=== PATIENT | female | born 1960 | race Caucasian/White ===

== ENCOUNTER 2019-07-15 09:12 | Outpatient (CLI) | payer SELFPAY ==
--- NOTE | 2019-07-15 09:19 | XRR_ITS ---
PROCEDURE INFORMATION: Exam: XR Lumbosacral Spine, 2 or 3 Views Exam date and time: 07/15/2019 9:53 AM Age: 59 years old Clinical indication: Low back pain TECHNIQUE: Imaging protocol: XR of the lumbosacral spine, 2 or 3 views. COMPARISON: CR Lumbar Spine 2-3 views* [id number] 04/15/2019 10:15 AM FINDINGS: Vertebrae: Severe diffuse degenerative disc disease reflected as severe decrease in disc space height and anterior endplate osteophytosis. No spondylolisthesis No pars defect. No fracture. Soft tissues: Normal. Other findings: No motion with flexion or extension. XR/XR lumbar spine f/e only [id number] IMPRESSION: Severe diffuse degenerative disc disease.
== END 2019-07-15 09:13 | disposition home or self-care (01) ==
PROVIDERS: PCP Nurse Practitioner Family; Visit Provider Specialist
DX: M47.896 Other spondylosis, lumbar region (principal); M54.5 Low back pain
CPT/HCPCS: 72120

== ENCOUNTER 2019-07-26 16:30 | Outpatient (CLI) | payer SELFPAY ==
--- NOTE | 2019-07-26 16:45 | MR_ITS ---
WS: [id number] MRI LUMBAR SPINE NONCONTRAST TECHNIQUE: Sagittal T1, T2 and STIR imaging. Axial T1 and T2 imaging. CLINICAL INFORMATION: Low back pain COMPARISON: None. FINDINGS: Mild lumbar curve. No acute compression. Disc bulging throughout the lumbar spine L1-L4. Slight retro listhesis L1 on L2 and L2 on L3. L1-L2: Mild annular bulging with narrowing of the subarticular recess bilaterally. Mild left and no s ignificant right foraminal narrowing. Mild facet arthropathy. L2-L3: Slight retrolisthesis. Annular bulging with narrowing of the right greater than left subarticu lar recess. Mild right and no significant left foraminal narrowing. Moderate facet arthropathy. L3-L4: Mild disc bulging with mild central canal stenosis. Narrowing of the right greater than left s ubarticular recess. Mild right greater than left foraminal narrowing. Moderate facet arthropathy. L4-L5: Mild disc bulging with mild central canal stenosis. Moderate facet arthropathy. Narrowing of t he subarticular recess bilaterally. Mild right foraminal narrowing. L5-S1: Mild annular bulging. Slight effacement of ventral thecal sac. Moderate facet arthropathy. Tar pilar cysts in the sacrum. Visualized pelvic bony structures: Normal. Paravertebral soft tissues: Normal. MR/MR lumbar spine wo con* [id number] IMPRESSION: 1. Mild lumbar curve. No acute compression. Slight retrolisthesis L1 on L2 and L2 on L3. 2. Mild disc bulging L3-L4 and L4-L5 with mild central canal stenosis and narr owing of the subarticular recess right greater than left. 3. Mild right L3-L4 and L4-L5 foraminal narrowing. 4. Annular bulging L5-S1 with slight effacement of ventral thecal sac. 5. Moderate facet arthropathy L3-L5. 6. Mild disc bulging L1-L2 and L2-L3 with slight retrolisthesis and narrowing of the right L2-L3 subarticular recess.
== END 2019-07-26 16:31 | disposition home or self-care (01) ==
PROVIDERS: PCP Nurse Practitioner Family; Visit Provider Licensed Practical Nurse
DX: M54.5 Low back pain (principal); M51.86 Other intervertebral disc disorders, lumbar region; M47.816 Spondylosis without myelopathy or radiculopathy, lumbar region
CPT/HCPCS: 72148

== ENCOUNTER → 2019-10-04 12:59 | Outpatient (BNVA) | payer SELFPAY | PROVIDERS: PCP Nurse Practitioner Family; Referring Provider Specialist; Visit Provider Anesthesiology Pain Medicine | DX: M47.816 Spondylosis without myelopathy or radiculopathy, lumbar region (principal); M51.36 Other intervertebral disc degeneration, lumbar region; M54.9 Dorsalgia, unspecified; Z79.891 Long term (current) use of opiate analgesic | CPT/HCPCS: 99204 ==

== ENCOUNTER → 2019-11-22 14:00 | Outpatient (BNVA) | payer SELFPAY | PROVIDERS: PCP Nurse Practitioner Family; Visit Provider Anesthesiology Pain Medicine | DX: M47.816 Spondylosis without myelopathy or radiculopathy, lumbar region (principal); M54.9 Dorsalgia, unspecified | CPT/HCPCS: 64493; 64494; 64495; J2001; J3490 ==

== ENCOUNTER → 2019-12-09 09:05 | Outpatient (BNVA) | payer SELFPAY | PROVIDERS: PCP Nurse Practitioner Family; Visit Provider Anesthesiology Pain Medicine | DX: M51.16 Intervertebral disc disorders with radiculopathy, lumbar region (principal); M47.816 Spondylosis without myelopathy or radiculopathy, lumbar region; M43.16 Spondylolisthesis, lumbar region; M51.36 Other intervertebral disc degeneration, lumbar region; M51.17 Intervertebral disc disorders with radiculopathy, lumbosacral region; M54.9 Dorsalgia, unspecified | CPT/HCPCS: 99213 ==

== ENCOUNTER → 2019-12-20 13:04 | Outpatient (BNVA) | payer SELFPAY | PROVIDERS: PCP Nurse Practitioner Family; Visit Provider Anesthesiology Pain Medicine | DX: M47.816 Spondylosis without myelopathy or radiculopathy, lumbar region (principal); M54.9 Dorsalgia, unspecified | CPT/HCPCS: 64635; 64636; 77003; J1030; J2001 ==

== ENCOUNTER → 2020-01-13 09:12 | Outpatient (BNVA) | payer SELFPAY | PROVIDERS: PCP Nurse Practitioner Family; Visit Provider Anesthesiology Pain Medicine | DX: M51.16 Intervertebral disc disorders with radiculopathy, lumbar region (principal); M47.816 Spondylosis without myelopathy or radiculopathy, lumbar region; M51.36 Other intervertebral disc degeneration, lumbar region; M43.16 Spondylolisthesis, lumbar region; M51.17 Intervertebral disc disorders with radiculopathy, lumbosacral region; M54.9 Dorsalgia, unspecified | CPT/HCPCS: 99213 ==

== ENCOUNTER → 2020-03-07 09:25 | Outpatient (BNVA) | payer SELFPAY | PROVIDERS: PCP Nurse Practitioner Family; Visit Provider Anesthesiology Pain Medicine | DX: M47.816 Spondylosis without myelopathy or radiculopathy, lumbar region (principal); M51.36 Other intervertebral disc degeneration, lumbar region; M43.16 Spondylolisthesis, lumbar region; M51.16 Intervertebral disc disorders with radiculopathy, lumbar region; M51.17 Intervertebral disc disorders with radiculopathy, lumbosacral region; M54.9 Dorsalgia, unspecified | CPT/HCPCS: 99213 ==

== ENCOUNTER 2020-10-30 15:30 | Outpatient (CLI) | payer SELFPAY ==
[2020-10-30 16:13] LABS: Basophils # 0.1 10^3/uL (0.0-0.1); Basophils % 0.6 %; Eosinophils # 0.2 10^3/uL (0.0-0.8); Eosinophils % 1.6 %; Hematocrit 43.3 % (37.0-47.0); Hemoglobin 13.7 g/dL (11.5-15.3); Lymphocytes # 3.5 10^3/uL (0.8-4.8); Lymphocytes % 37.9 %; Mean Corpuscular HGB Conc 31.6 g/dL (30.0-36.0); Mean Corpuscular Hemoglobin 27.7 pg (28.0-34.0); Mean Corpuscular Volume 87.7 fL (81-99); Mean Platelet Volume 9.7 fL (7.4-10.4); Monocytes # 0.7 10^3/uL (0.2-0.9); Monocytes % 7.3 %; Neutrophils # 4.85 10^3/uL (1.8-7.7); Neutrophils % 52.4 %; Nucleated Red Blood Cells % 0 %; Platelet Count 289 10^3/cmm (130-400); Red Blood Count 4.94 10^6/uL (4.1-5.3); Red Cell Distribution Width 12.7 % (12.1-15.1); White Blood Count 9.3 10^3/uL (4.0-10.0)
[2020-10-30 16:43] LABS: 25 Hydroxy Vitamin D 30 ng/mL (30-100)
[2020-10-30 17:06] LABS: Testosterone Total 2.5 ng/dL (2.9-40.8)
[2020-10-30 19:57] LABS: Estmated Average Glucose 108; Hemoglobin A1C 5.4 % (4.0-6.0)
[2020-11-04 20:12] LABS: Testosterone, Free 1.6 pg/mL (0.2-5.0)
== END 2020-10-30 15:31 | disposition home or self-care (01) ==
PROVIDERS: PCP Nurse Practitioner Family; Visit Provider Emergency Medicine Sports Medicine
DX: Z01.812 Encounter for preprocedural laboratory examination (principal); R53.83 Other fatigue; M89.9 Disorder of bone, unspecified; M94.9 Disorder of cartilage, unspecified; E55.9 Vitamin D deficiency, unspecified
CPT/HCPCS: 82306; 83036; 84270; 84402; 84403; 85025

== ENCOUNTER 2022-12-11 16:56 | Emergency (ER) | payer OTHER, SELFPAY ==
[2022-12-11] VITALS (7 sets, daily range): BP systolic 123–177; BP diastolic 73–108; PULSE 64–71; RESP 18–20; TEMP 36.8; O2SAT 96–98
--- NOTE | 2022-12-11 17:09 | ECG_ITS ---
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 Measurements Intervals [place] Rate: 68 P: 46 WI: 152 QRS: -2 QRSD: 93 T: 36 QT: 409 QTc: 436 Interpretive Statements SINUS RHYTHM POSSIBLE LEFT ATRIAL ENLARGEMENT [-0.1mV P-WAVE IN V1/V2] MINIMAL ST DEPRESSION [0.025+ mV ST DEPRESSION] No previous ECG available for comparison Electronically Signed On 12-11-2022 23:18:44 CDT by Moe Huang M.D. [id number] f
--- NOTE | 2022-12-11 17:45 | XRR_ITS ---
PROCEDURE INFORMATION: Exam: XR Chest Exam date and time: 12/11/2022 4:57 PM Age: 62 years old Clinical indication: Pain; Chest pressure; Additional info: Cp TECHNIQUE: Imaging protocol: Radiologic exam of the chest. Views: 1 view. COMPARISON: MR thoracic spin wo con* [id number] 05/04/2019 4:58 PM FINDINGS: Lungs: Unremarkable. No consolidation. Pleural spaces: Unremarkable. No pleural effusion. No pneumothorax. Heart/Mediastinum: Unremarkable. No cardiomegaly. Bones/joints: Unremarkable. XR/XR chest 1V portable [id number] IMPRESSION: No acute findings.
--- NOTE | 2022-12-11 19:26 | ED_ITS ---
HPI - Chest Pain General: Chief Complaint: Chest Pain Stated Complaint: irregular hr, face and arm numbness/crawling feel Time Seen by Provider: 12/11/22 19:17 Source: patient Mode of arrival: ambulatory Limitations: no limitations History of Present Illness: 62-year-old female states that she is at work today at 330 she states that she had felt like there was ants crawling on the right side of her face states she feels twitching on her face now states she then started having some right-sided chest pain and also left arm pain that she states felt like radiated to her back states is a sharp pain states pain is currently 4 out of 10. She denies any slurred speech denies any weakness denies any change in her vision she denies headache. She has had some dyspnea with exertion she states been going on for weeks. Associated symptoms: Deny abdominal pain, dyspnea, fever(s), nausea or vomiting Review of Systems Const: Denies: fever(s), chills, body aches or change in appetite Eyes: Denies: blurry vision or eye discomfort ENMT: Denies: throat pain or dental pain Card: Reports: chest pain Resp: Denies: dyspnea GI: Denies: abdominal pain, nausea, vomiting or diarrhea : Denies: dysuria Musc: Denies: neck pain or back pain Skin/Breast: Denies: rash Neuro: Reports: sensory changes; Denies: headache(s) PFS ED PFSH: Medical History (Updated 12/11/22 @ 22:06 by Riana Stone MD) Displacement of lumbar disc with radiculopathy Lumbar spondylosis Scoliosis deformity of spine Spondylolisthesis, lumbar region Surgical History History of appendectomy (~1983) History of tubal ligation (~1983) Family History Mother Lung cancer Sister Ovarian cancer Social History Smoking and tobacco status: never smoked Second hand smoke exposure: No Alcohol intake: never Substance/Drug Use: never Household members: spouse Housing: House Marital status: service: No Current occupational status: employed 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 Exam Const: COMMON NORMALS: no acute distress, patient oriented x3 and healthy appearing HENMT: COMMON NORMALS: normocephalic and atraumatic HEAD & SCALP: normoceph alic and atraumatic Eye: COMMON NORMALS: Equal, round and reactive pupils present and EOMs intact bilaterally PUPIL: Yes Equal, round and reactive pupils present Neck/C-Spine: COMMON NORMALS: full ROM and supple Chest: COMMONS NORMALS: normal inspection of the chest and normal palpation of entire chest wall Resp: COMMON NORMALS: normal respiratory effort, No retractions, No use of accessory muscles and clear to auscultation bilaterally AUSCULTATION: clear to auscultation bilaterally Cardio: COMMON NORMALS: regular rate, regular rhythm and No murmurs present (Cardio) RATE: regular rate RHYTHM: regular rhythm GI: COMMON NORMALS: Normal to inspection, nondistended, normoactive bowel sounds present, Soft to palpation, non-tender and no masses PALPATION: Yes Soft to palpation Extremity: COMMON NORMALS: normal to inspection and full ROM Neuro: COMMON NORMALS: patient oriented x3, moves all extremities and no focal motor deficits Psych: COMMON NORMALS: mental status grossly normal, Normal thought process present and cooperative THOUGHT PROCESS: Normal thought process present Skin: COMMON NORMALS: no rashes or lesions noted and no wounds GENERAL SKIN EXAM: no rashes or lesions noted Course Vital Signs: Vital signs: Vital Signs Temperature 98.2 F 12/11/22 16:58 Pulse Rate 71 12/11/22 21:30 Respiratory Rate 18 12/11/22 21:30 Blood Pressure 129/80 12/11/22 21:30 Pulse Oximetry 96 12/11/22 21:30 Oxygen Delivery Me thod Room Air 12/11/22 20:09 MDM - Chest Pain Medical Decision Making Patient presents for chest pain is atypical in nature her initial repeat troponins here are normal she is having some paresthesias she was anxious that her symptoms are improved with Ativan she has no signs of a stroke here her D- dimer was elevated CT angio of her chest showed no dissection or pulmonary embolism she is to follow-up with her PCP and return if worsening. Medical Records I reviewed the patient's medical records. Lab Data I reviewed the patient's lab results. 12/11/22 19:26 12/11/22 19:26 Radiology Impressions Chest X-Ray 12/11/22 17:45 IMPRESSION: No acute findings. Chest CTA 12/11/22 20:07 IMPRESSION: 1. No evidence of pulmonary embolism. No acute finding. 2. Right thyroid nodule. Further evaluation with non urgent thyroid ultrasound suggested. COMMENTS: Consistent with the [place] [employer]'s Incidental Findings Committee white paper (J Am Becki Radiol 2015): In patients aged 35 years and older with an incidental thyroid nodule equal to or greater than 1.[address], MRI or extrathyroidal US, further evaluation with dedicated thyroid US is recommended for patients with normal life expectancy and without comorbidities. For smaller nodules without suspicious features, no further evaluation or follow up is recommended. Laboratory Results WBC 11.5 10^3/uL (4.0-10.0) H 12/11/22 19: RBC 5.60 10^6/uL (4.1-5.3) H 12/11/22 19: Hgb 15.1 g/dL (11.5-15.3) 12/11/22 19: Hct 48.3 % (37.0-47.0) H 12/11/22 19: MCV 86.3 fl (81-99) 12/11/22 19: MCH 27.0 pg (28.0-34.0) L 12/11/22 19: MCHC 31.3 g/dL (30.0-36.0) 12/11/22 19: RDW 13.1 % (12.1-15.1) 12/11/22 19: Plt Count 293 10^3/cmm (130-400) 12/11/22 19: MPV 10.0 fL (7.4-10.4) 12/11/22 19: Neut % (Auto) 55.2 % 12/11/22 19: Lymph % (Auto) 36.4 % 12/11/22 19: [place] % (Auto) 5.4 % 12/11/22 19: Eos % (Auto) 2.2 % 12/11/22 19: Baso % (Auto) 0.5 % 12/11/22 19:26 Neut # (Auto) 6.35 10^3/uL (1.8-7.7) 12/11/22 19:26 Lymph # (Auto) 4.2 10^3/uL (0.8-4.8) 12/11/22 19:26 [place] # (Auto) 0.6 10^3/uL (0.2-0.9) 12/11/22 19:26 Eos # (Auto) 0.3 10^3/uL (0.0-0.8) 12/11/22 19:26 Baso # (Auto) 0.1 10^3/uL (0.0-0.1) 12/11/22 19:26 Nucleated RBC % (auto) 0 % 12/11/22 19:26 Nucleated RBCs # 0.0 /100WBC 12/11/22 19:26 D-Dimer 1.07 ug/mIFEU (0-0.59) H 12/11/22 19:46 Sodium 141 mmol/L (136-145) 12/11/22 19:26 Potassium 4.2 mmol/L (3.5-5.1) 12/11/22 19:26 Chloride 106 mmol/L (98-107) 12/11/22 19:26 Carbon Dioxide 21 mmol/L (22-29) L 12/11/22 19:26 Anion Gap 18.2 (5-19) 12/11/22 19:26 BUN 15 mg/dL (8-23) 12/11/22 19:26 Creatinine 0.7 mg/dL (0.5-0.9) 12/11/22 19:26 GFR Calculation 84.8 mL/min (90-130) L 12/11/22 19:26 Glucose 94 mg/dL (65-115) 12/11/22 19:26 Calculated Osmolality 293 mOsm/kg (285-295) 12/11/22 19:26 Calcium 9.2 mg/dL (8.5-10.5) 12/11/22 19:26 Total Bilirubin 0.2 mg/dL (0.15-1.2) 12/11/22 19:26 AST 27 U/L (0-32) 12/11/22 19:26 ALT 18 U/L (0-33) 12/11/22 19:26 Alkaline Phosphatase 121 U/L (35-105) H 12/11/22 19:26 Troponin T Baseline 6 ng/L (0-10) 12/11/22 19:26 Troponin T 120 Minute 6.00 ng/L (0-10) 12/11/22 21:33 Delta Troponin T 0 ABS# (0-10) 12/11/22 21:33 Total Protein 7.6 g/dL (6.6-8.7) 12/11/22 19:26 Albumin 4.8 g/dL (3.5-5.2) 12/11/22 19:26 Globulin 2.8 g/dL (1.3-4.6) 12/11/22 19:26 EKG Data EKG 1: I personally reviewed and interpreted this EKG as follows: EKG interpretation date: 12/11/22 EKG interpretation time: 17:09 Interpretation: nsr hr [address] or t wave abnormalities qrs 93 qtc 426 EKG 2: I personally reviewed and interpreted this EKG as follows: EKG interpretation date: 12/11/22 EKG interpretation time: 20:02 Interpretation: nsr hr [address] or t wave abnormalities qrs 97 qtc 422 Discharge Plan Discharge Patient Disposition: Home Clinical Impression: Chest pain, Paresthesia Condition: Stable Prescriptions: No Action ibuprofen 200 mg capsule 600 mg PO Q6H PRN esomeprazole magnesium [Nexium] 40 mg capsule,delayed release(DR/EC) 40 mg PO DAILY azithromycin [Zithromax Z-Oscar] 250 mg tablet See Rx Instructions PO .COMPLEX Qty: 6 0RF Rx Instructions: For 250 mg dose pack: take 500 mg today (day 1), then 250 mg for 4 days (days 2-5) PO Discharge Orders: Discharge ED (Routine); Ordered 12/11/22 Ordered By: Riana Stone Discharge Diet: Advance as tolerated Discharge Activity: Resume usual activity Patient Instructions: Chest Pain (ED), Paresthesia (ED) Coding Level of Care Code 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
[2022-12-11 19:55] LABS: Basophils # 0.1 10^3/uL (0.0-0.1); Basophils % 0.5 %; Eosinophils # 0.3 10^3/uL (0.0-0.8); Eosinophils % 2.2 %; Hematocrit 48.3 % (37.0-47.0); Hemoglobin 15.1 g/dL (11.5-15.3); Lymphocytes # 4.2 10^3/uL (0.8-4.8); Lymphocytes % 36.4 %; Mean Corpuscular HGB Conc 31.3 g/dL (30.0-36.0); Mean Corpuscular Volume 86.3 fl (81-99); Monocytes # 0.6 10^3/uL (0.2-0.9); Monocytes % 5.4 %; Neutrophils # 6.35 10^3/uL (1.8-7.7); Neutrophils % 55.2 %; Nucleated Red Blood Cells % 0 %; Platelet Count 293 10^3/cmm (130-400); Red Cell Distribution Width 13.1 % (12.1-15.1); White Blood Count 11.5 10^3/uL (4.0-10.0)
[2022-12-11] MEDS: LORazepam 2 mg/mL INJ 1 mL 1 MG IVP (19:56)
--- NOTE | 2022-12-11 20:02 | ECG_ITS ---
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 Measurements Intervals [place] Rate: 67 P: 29 ME: 149 QRS: -2 QRSD: 97 T: 17 QT: 406 QTc: 432 Interpretive Statements SINUS RHYTHM POSSIBLE LEFT ATRIAL ENLARGEMENT [-0.1mV P-WAVE IN V1/V2] LOW QRS VOLTAGE IN PRECORDIAL LEADS [QRS DEFLECTION < 1.0 mV IN CHEST LEADS] PATTERN CONSISTENT WITH PULMONARY DISEASE MODERATE ST DEPRESSION [0.05+ mV ST DEPRESSION] Compared to ECG 12/11/2022 17:09:03 Low QRS voltage now present ST (T wave) deviation still present Electronically Signed On 12-11-2022 23:19:26 CDT by Moe Huang M.D. [id number]
[2022-12-11 20:05] LABS: D Dimer 1.07 ug/mIFEU (0-0.59)
--- NOTE | 2022-12-11 20:07 | CTR_ITS ---
PROCEDURE INFORMATION: Exam: CTA Chest With Contrast Exam date and time: 12/11/2022 8:31 PM Age: 62 years old Clinical indication: Pain; Chest pressure; Additional info: Cp TECHNIQUE: Imaging protocol: Computed tomographic angiography of the chest with contrast. Exam focused on the arteries. 3D rendering (Not supervised by radiologist): MIP and/or 3D reconstructed images were created by the technologist. Radiation optimization: All CT scans at this facility use at least one of these dose optimization techniques: automated exposure control; mA and/or kV adjustment per patient size (includes targeted exams where dose is matched to clinical indication); or iterative reconstruction. Contrast material: OMNI 350; Contrast volume: 100 ml; Contrast route: INTRAVENOUS (IV); REPORTING DATA: Count of CT and Cardiac NM exams in prior 12 months: This patient has received 0 known CTs and 0 known cardiac nuclear medicine studies in the 12 months prior to the current study. COMPARISON: CR (CHEST, ) 12/11/2022 4:57 PM RADIATION DOSE METRICS: Total DLP (mGy-cm): 384.08 FINDINGS: Pulmonary arteries: There is no evidence of filling defects within the pulmonary arterial circulation to suggest pulmonary embolism. Aorta: There is no thoracic aortic aneurysm or dissection. Thyroid: There is a 3.5 cm sized nodule in the lower pole of the right lobe of the thyroid. Recommend further evaluation with thyroid ultrasound if not previously done. Lungs: There is mild dependent atelectasis at the lung bases. Pleural spaces: Unremarkable. No pneumothorax. No pleural effusion. Heart: Unremarkable. No cardiomegaly. No pericardial effusion. Lymph nodes: There is no evidence of lymphadenopathy. Bones/joints: Unremarkable. No acute fracture. Soft tissues: Unremarkable. CT/CT angio chest PE protcl [id number] IMPRESSION: 1. No evidence of pulmonary embolism. No acute finding. 2. Right thyroid nodule. Further evaluation with non urgent thyroid ultrasound suggested. COMMENTS: Consistent with the [place] [employer]'s Incidental Findings Committee white paper (J Am Becki Radiol 2015): In patients aged 35 years and older with an incidental thyroid nodule equal to or greater than 1.[address], MRI or extrathyroidal US, further evaluation with dedicated thyroid US is recommended for patients with normal life expectancy and without comorbidities. For smaller nodules without suspicious features, no further evaluation or follow up is recommended.
[2022-12-11 20:18] LABS: Troponin(5th) Baseline 6 ng/L (0-10)
[2022-12-11 20:20] LABS: Albumin Level 4.8 g/dL (3.5-5.2); Alkaline Phosphatase 121 U/L (35-105); Blood Urea Nitrogen 15 mg/dL (8-23); Calcium 9.2 mg/dL (8.5-10.5); Carbon Dioxide 21 mmol/L (22-29); Chloride 106 mmol/L (98-107); Globulin 2.8 g/dL (1.3-4.6); Glomerular Filtration Rate 84.8 mL/min (90-130); Glucose 94 mg/dL (65-115); Osmolality Calculated 293 mOsm/kg (285-295); Sodium 141 mmol/L (136-145); Total Bilirubin 0.2 mg/dL (0.15-1.2); Total Protein 7.6 g/dL (6.6-8.7)
--- NOTE | 2022-12-11 20:21 | PC.NURSE ---
Pt hooked up to continuous bedside cardiac monitoring.
[2022-12-11 20:24] LABS: Alanine Aminotransferase 18 U/L (0-33); Anion Gap 18.2 (5-19); Aspartate Amino Transferase 27 U/L (0-32); Potassium 4.2 mmol/L (3.5-5.1)
[2022-12-11 22:06] LABS: Troponin 5 2HR Delta 0 ABS# (0-10)
== END 2022-12-11 22:19 | disposition home or self-care (01) ==
PROVIDERS: Emergency Provider Emergency Medicine
DX: R07.89 Other chest pain (principal); R20.2 Paresthesia of skin
CPT/HCPCS: 36415; 71045; 71275; 80053; 84484; 85025; 85378; 93005; 96374; 99285; J2060; Q9967

== ENCOUNTER 2025-01-13 10:58 | Emergency (ER) | payer SELFPAY ==
--- OUTSIDE RECORDS SUMMARY | 2025-01-13 11:01 | XMS_ITS | Clinical Summary ---
Author Organization [facility] Address [address] Attn: Epic [place] [address] Care Team Providers Care Senior Maintenance Technician Name Role Phone Lopez Dupree MD Primary Care Provider [phone] [phone] Allergies Active Allergy Reactions Criticality Noted Date Comments Citalopram Delirium Medium 01/03/2016 Medications ibuprofen (MOTRIN) 200 mg tablet Take 200 mg by mouth every 6 hours as needed for Pain, Mild. 04/14/2017 Active amitriptyline (ELAVIL) 10 mg tabletIndication s:Insomnia, unspecified type Take 1 Tablet (10 mg) by mouth daily at bedtime. 30 Tablet 1 04/21/2017 Active acetaminophen (TYLENOL ORAL) Take by mouth. 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 Gender Identity Not on file Sexual Orientation Not on file Last Filed Vital Signs Vital Sign Reading Time Taken Comments Blood Pressure 113/65 04/14/2017 2:54 PM CDT Pulse 60 04/14/2017 2:54 PM CDT Temperature 36.4 C (97.5 F) 04/14/2017 2:54 PM CDT Respiratory Rate 12 04/14/2017 2:54 PM CDT Oxygen Saturation - - Inhaled Oxygen Concentration - - Weight 77.6 kg (171 lb) 04/14/2017 2:54 PM CDT Height 177.8 cm (5' 10 ) 04/14/2017 2:54 PM CDT Body Mass Index 24.54 04/14/2017 2:54 PM CDT Plan of Treatment Health Maintenance Due Date Last Done Comments DTAP/TDAP/TD VACCINES (1 - Tdap) 1979 HPV/Cotest (21-29) 1981 CERVICAL CANCER SCREENING 1990 HPV/Cotest (30-65) 1990 PAP SMEAR 1990 BREAST CANCER SCREENING 2000 COLORECTAL SCREENING 2005 Colorectal Cancer Screening 2005 FIT-DNA Q 3 years 2005 FIT/FOBT Q 1 year 2005 Flex Sig/CT Colonography Q 5 years 2005 ZOSTER VACCINE (1 of 2) 2010 INFLUENZA VACCINE (#1) 2025 RSV VACCINE (60+ or ) (1 - 1-dose 75+ series) 2035 Care Teams Senior Maintenance Technician Relationship Specialty Start Date End Date Lopez Dupree MD [address] [facility] [facility] [address] [place] [id number] PCP - General Family Practice 04/14/17
--- OUTSIDE RECORDS SUMMARY | 2025-01-13 11:01 | XMS_ITS | Clinical Summary ---
Author Organization [facility] Address [address] [facility] [facility] [address] [place] [address] Phone Care Team Providers Care Employee Relations Administrator Name Role Phone Lopez Dupree MD Primary Care Provider [phone] [phone] Allergies Active Allergy Reactions Criticality Noted Date Comments Citalopram Delirium Medium 01/03/2016 Medications ibuprofen (MOTRIN) 200 mg tablet Take 200 mg by mouth every 6 hours as needed for Pain, Mild. Active ACETAMINOPHEN (TYLENOL ORAL) Take by mouth. Active amitriptyline (ELAVIL) 10 mg tabletIndication s:Insomnia, unspecified type Take 1 Tablet (10 mg) by mouth daily at bedtime. 30 Tablet 1 04/21/2017 Active Active Problems No known active problems Social History Tobacco Use Types Packs/Day Years Used Date Smoking Tobacco: Never Smokeless Tobacco: Never Alcohol Use Standard Drinks/Week Comments No 0 (1 standard drink = 0.6 oz pur e alcohol) Comments No Sex and Gender Information Value Date Recorded Sex Assigned at Not on file Legal Sex Female 8:45 PM CDT Gender Identity Not on file Sexual Orientation Not on file Last Filed Vital Signs Vital Sign Reading Time Taken Comments Blood Pressure 113/65 04/14/2017 2:54 PM CDT Pulse 60 04/14/2017 2:54 PM CDT Temperature 36.4 C (97.5 F) 04/14/2017 2:54 PM CDT Respiratory Rate 12 04/14/2017 2:54 PM CDT Oxygen Saturation 97% 04/14/2017 2:54 PM CDT Inhaled Oxygen Concentration - - Weight 77.6 [...] - 1-dose 75+ series) 2035 Care Teams Employee Relations Administrator Relationship Specialty Start Date End Date Lopez Dupree MD [address] [facility] [address] [place] [address] PCP - General Family Practice 04/14/17
--- NOTE | 2025-01-13 11:03 | ECG_ITS ---
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
[2025-01-13 11:04] VITALS: BP 151/84; PULSE 79; RESP 17; TEMP 36.5; O2SAT 99; BMI 25.1
--- NOTE | 2025-01-13 11:17 | W.ED.CHESTPA ---
HPI - Chest Pain General: Chief Complaint: Chest Pain Stated Complaint: cp, right arm feels like fire,shoulder pain Time Seen by Provider: 01/13/25 11:10 History of Present Illness: 64-year-old female with no known past medical history who presents emergency room with chest pain. Says she was at work and she initially felt some pain in her left flank but then it went to her shoulder blades and her central chest and she is having some numbness in her right arm. No known coronary history. She says she has had some similar episodes that were less severe and more brief recently. No lower extremity swelling. No cough. No shortness of breath. Related Data Home Medications ?Medication ?Instructions ?Recorded ?Confirmed ibuprofen 200 mg capsule 1,000 mg PO Q6H PRN Pain 09/21/19 01/13/25 Previous Rx's ?Medication ?Instructions ?Recorded zolpidem 10 mg tablet (Ambien) 10 mg PO .qhs PRN insomnia #22 tabs 12/26/24 Allergies Allergy/AdvReac Type Severity Reaction Status Date / Time No Known Allergies Allergy Verified 12/26/24 13:31 Review of Systems Narrative: Constitutional symptoms: Negative except as documented in HPI. Skin symptoms: Negative except as documented in HPI. Eye symptoms: Negative except as documented in HPI. ENMT symptoms: Negative except as documented in HPI. Respiratory symptoms: Negative except as documented in HPI. Cardiovascular symptoms: Negative except as documented in HPI. Gastrointestinal symptoms: Negative except as documented in HPI. Genitourinary symptoms: Negative except as documented in HPI. Musculoskeletal symptoms: Negative except as documented in HPI. Neurologic symptoms: Negative except as documented in HPI. Psychiatric symptoms: Negative except as documented in HPI. Endocrine symptoms: Negative except as documented in HPI. PFSH ED PFSH: Medical History (Updated 01/13/25 @ 14:33 by Sanjuana Samayoa MD) Lumbar spondylosis Spondylolisthesis, lumbar region Displacement of lumbar disc with radiculopathy Scoliosis deformity of spine Surgical History History of tubal ligation (~1983) History of appendectomy (~1983) Family History Mother Lung cancer Sister Ovarian cancer Social History (Reviewed 12/26/24 @ 13:55 by ROGER Peck Smoking and tobacco/nicotine status: never used tobacco/nicotine Second hand smoke exposure: No Alcohol intake: never Substance/Drug Use: never Household members: spouse Housing: House Marital status: service: No Current occupational status: employed 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 Skin: Warm, dry. Head: Normocephalic, atraumatic. Neck: Supple, trachea midline. Eye: Extraocular movements are intact. Ears, nose, mouth and throat: mucosa moist. Cardiovascular: Regular, Normal peripheral perfusion. Respiratory: Lungs are clear to auscultation, respirations are non-labored, breath sounds are equal, Symmetrical chest wall expansion. Gastrointestinal: Soft, Nontender, Non distended Musculoskeletal: Normal ROM, no deformity. Neurological: Alert and oriented, No focal neurological deficit observed. Psychiatric: Cooperative, anxious and tearful Course Vital Signs: Vital signs: Vital Signs Temperature 97.7 F 01/13/25 11:04 Pulse Rate 70 01/13/25 14:56 Respiratory Rate 16 01/13/25 14:56 Blood Pressure 166/98 01/13/25 14:56 Pulse Oximetry 99 01/13/25 14:56 Oxygen Delivery Me thod Room Air 01/13/25 11:04 MDM - Chest Pain Medical Decision Making Differential diagnosis for patient with chest pain includes but is not limited to and based on the above HPI, review of systems and physical exam: Pneumonia. unstable angina. angina. Acute coronary syndrome / NH. Pulmonary embolism. Costochondritis / musculoskeletal. Pleurisy. Pericarditis. Esophageal spasm. Pancreatis. Cholecystitis. Orders placed to evaluate differential diagnosis based on the above differential, HPI and physical exam EKG: Time 1103. Rate 77. Normal sinus rhythm, No ST-T changes, no ectopy, normal CO & QRS intervals, This was reviewed and interpreted by myself the ER physician at 1107 Repeat EKG: Time 1347. Rate 72. Normal sinus rhythm, No ST-T changes, no ectopy, normal CO & QRS intervals, This was reviewed and interpreted by myself the ER physician at 1352 Chest x-ray: No acute process. No infiltrates. Radiology does note that she has some atherosclerosis. Discussed this with the patient and she is planning on following up with cardiology. This was reviewed and interpreted by myself the emergency room physician. I also reviewed the radiology report. Lab Review: Laboratory results were reviewed and interpreted by myself the emergency room physician. No leukocytosis. No anemia. No renal failure. Serial cardiac markers are negative. I reviewed the patient's medical record. Reexamination: Patient remained stable. No increased work of breathing. No altered mental status. No focal motor deficits. Assessment and plan: Noncardiac chest pain - Discharged home - Discussed plan with patient. Answered any questions. - Evaluation and treatment of this problem were appropriate in the emergency setting. Lab Data 01/13/25 11:24 01/13/25 11:24 Radiology Impressions Chest X-Ray 01/13/25 13:54 Impression: Atherosclerosis. Laboratory Results WBC 9.88 10^3/uL (3.29-11.43) 01/13/25 11:24 RBC 4.78 10^6/uL (3.85-5.65) 01/13/25 11:24 Hgb 13.30 g/dL (11.27-16.99) 01/13/25 11:24 Hct 42.0 % (36-47) 01/13/25 11:24 MCV 87.9 fl (85-98) 01/13/25 11:24 MCH 27.8 pg (27-33) 01/13/25 11:24 MCHC 31.7 g/dL (30-55) 01/13/25 11:24 RDW 13.1 % (12.1-15.1) 01/13/25 11:24 Plt Count 297 10^3/cmm (157-399) 01/13/25 11:24 MPV 10.4 fL (7.4-10.4) 01/13/25 11:24 Neut % (Auto) 45.1 % 01/13/25 11:24 Lymph % (Auto) 45.2 % 01/13/25 11:24 [place] % (Auto) 6.5 % 01/13/25 11:24 Eos % (Auto) 2.1 % 01/13/25 11:24 Baso % (Auto) 0.9 % 01/13/25 11:24 Neut # (Auto) 4.45 10^3/uL (1.8-7.7) 01/13/25 11:24 Lymph # (Auto) 4.5 10^3/uL (0.8-4.8) 01/13/25 11:24 [place] # (Auto) 0.6 10^3/uL (0.2-0.9) 01/13/25 11:24 Eos # (Auto) 0.2 10^3/uL (0.0-0.8) 01/13/25 11:24 Baso # (Auto) 0.1 10^3/uL (0.0-0.1) 01/13/25 11:24 Nucleated RBC % (auto) 0 % 01/13/25 11:24 Nucleated RBCs # 0.0 /100WBC 01/13/25 11:24 Sodium 140 mmol/L (136-145) 01/13/25 11:24 Potassium 4.1 mmol/L (3.5-5.1) 01/13/25 11:24 Chloride 104 mmol/L (98-107) 01/13/25 11:24 Carbon Dioxide 21 mmol/L (22-29) L 01/13/25 11:24 Anion Gap 19.1 (5-19) H 01/13/25 11:24 BUN 15 mg/dL (8-23) 01/13/25 11:24 Creatinine 0.6 mg/dL (0.5-0.9) 01/13/25 11:24 GFR Calculation 100.6 mL/min (90-130) 01/13/25 11:24 Glucose 91 mg/dL (65-115) 01/13/25 11:24 Calculated Osmolality 290 mOsm/kg (285-295) 01/13/25 11:24 Calcium 9.3 mg/dL (8.5-10.5) 01/13/25 11:24 Total Bilirubin 0.3 mg/dL (0.15-1.2) 01/13/25 11:24 AST 19 U/L (0-32) 01/13/25 11:24 ALT 16 U/L (0-33) 01/13/25 11:24 Alkaline Phosphatase 114 U/L (35-105) H 01/13/25 11:24 Troponin T Baseline < 6 ng/L (0-10) 01/13/25 11:24 Troponin T 120 Minute < 6.0 ng/L (0-10) 01/13/25 13:16 Delta Troponin T 0 ABS# (0-10) 01/13/25 13:16 NT-Pro-B Natriuret Pep 64 pg/mL (0-125) 01/13/25 11:24 Total Protein 7.2 g/dL (6.6-8.7) 01/13/25 11:24 Albumin 4.6 g/dL (3.5-5.2) 01/13/25 11:24 Globulin 2.6 g/dL (1.3-4.6) 01/13/25 11:24 Urine Color Yellow (Yellow) 01/13/25 12:11 Urine Appearance Clear (CLEAR) 01/13/25 12:11 Urine pH 7.0 (5-7) 01/13/25 12:11 Ur Specific Story 1.005 (1.005-1.030) 01/13/25 12:11 Urine Protein Negative (Negative) 01/13/25 12:11 Urine Glucose (UA) Negative (Normal) 01/13/25 12:11 Urine Ketones Negative (Negative) 01/13/25 12:11 Urine Blood Negative (Negative) 01/13/25 12:11 Urine Nitrate Negative (Negative) 01/13/25 12:11 Urine Bilirubin Negative (Negative) 01/13/25 12:11 Urine Urobilinogen 0.2 mg/dL (Negative) 01/13/25 12:11 Ur Leukocyte Esterase Trace (Negative) A 01/13/25 12:11 Urine RBC 0-2 /hpf (0-2) 01/13/25 12:11 Urine WBC 0-5 /hpf (0-5) 01/13/25 12:11 Ur Squamous Epith Cells 0-5 /hpf (0-5) 01/13/25 12:11 Amorphous Sediment Not Reportable 01/13/25 12:11 Urine Bacteria None seen /hpf (NONE) 01/13/25 12:11 Hyaline Casts 0-4 /lpf H 01/13/25 12:11 All radiology interpretation(s) finalized by discharge Discharge Plan Discharge Patient Disposition: Home Clinical Impression: Non-cardiac chest pain Condition: Stable Prescriptions: No Action ibuprofen 200 mg capsule 1,000 mg PO Q6H PRN (Reason: Pain) zolpidem [Ambien] 10 mg tablet 10 mg PO .qhs PRN (Reason: insomnia) Qty: 22 0RF Discharge Orders: Discharge ED (Routine); Ordered 01/13/25 Ordered By: Sanjuana Samayoa Referrals: Moe Huang M.D [Physician, Cardiology] - 4-7 days Referral Note: Please call for follow-up appointment Discharge Diet: Usual diet Discharge Activity: Increase activity as tolerated Patient Instructions: Noncardiac Chest Pain (ED), Opioid Safety, Pain Management, Patient Portal & Meka Instructions Activity Restrictions/Additional Instructions: Thank you for choosing [facility] for your healthcare needs today. You have been screened and evaluated and felt safe for discharge. Health conditions do change or evolve sometimes and as such it is important that you follow up with your Primary Doctor to be re checked, 3-5 days is a general good time frame for follow up. You are always welcome to return to the ED for re assessment if your symptoms are worsening or you have new concerns Print Language: Pashto Coding Level of Care Code ED Research Engineer for Armando Griffin
[2025-01-13 11:28] VITALS: BP 172/115; PULSE 80; RESP 16; O2SAT 97
[2025-01-13 12:06] LABS: Hematocrit 42.0 % (36-47); Hemoglobin 13.30 g/dL (11.27-16.99); Mean Corpuscular HGB Conc 31.7 g/dL (30-55); Mean Corpuscular Hemoglobin 27.8 pg (27-33); Mean Corpuscular Volume 87.9 fl (85-98); Nucleated Red Blood Cells % 0 %; Platelet Count 297 10^3/cmm (157-399); Red Blood Count 4.78 10^6/uL (3.85-5.65); White Blood Count 9.88 10^3/uL (3.29-11.43)
[2025-01-13 12:22] LABS: Glucose Urine UA Negative (Normal); Nitrate Urine Negative (Negative); Specific Gravity, Urine 1.005 (1.005-1.030)
[2025-01-13 12:30] LABS: Troponin(5th) Baseline < 6 ng/L (0-10)
[2025-01-13 12:40] LABS: Alanine Aminotransferase 16 U/L (0-33); Albumin Level 4.6 g/dL (3.5-5.2); Alkaline Phosphatase 114 U/L (35-105); Aspartate Amino Transferase 19 U/L (0-32); Blood Urea Nitrogen 15 mg/dL (8-23); Calcium 9.3 mg/dL (8.5-10.5); Carbon Dioxide 21 mmol/L (22-29); Chloride 104 mmol/L (98-107); Creatinine Clr Calc Pharmacy 108.9401; Globulin 2.6 g/dL (1.3-4.6); Glucose 91 mg/dL (65-115); NT Pro B Type Natriuretic Pept 64 pg/mL (0-125); Osmolality Calculated 290 mOsm/kg (285-295); Sodium 140 mmol/L (136-145); Total Protein 7.2 g/dL (6.6-8.7)
[2025-01-13 12:42] LABS: Anion Gap 19.1 (5-19); Potassium 4.1 mmol/L (3.5-5.1)
[2025-01-13 12:49] VITALS: BP 162/104; PULSE 73; RESP 16; O2SAT 97
[2025-01-13 13:01] VITALS: BP 172/118; PULSE 72; RESP 18; O2SAT 98
[2025-01-13 13:39] LABS: Troponin 5 2HR < 6.0 ng/L (0-10); Troponin 5 2HR Delta 0 ABS# (0-10)
--- NOTE | 2025-01-13 13:47 | ECG_ITS ---
[facility] Date: 2025-01-13 Pat Name: Dave Milner Department: Room: Gender: Female Research Nutritionist: : 1960 Requested By: Sanjuana Varela Order Number: [id number] Varela MD: Moe Huang M.D. Measurements Intervals [place] Rate: 72 P: 56 PA: 149 QRS: 5 QRSD: 95 T: 49 QT: 386 QTc: 423 Interpretive Statements SINUS RHYTHM Compared to ECG 01/13/2025 11:03:20 ST (T wave) deviation no longer present Electronically Signed On 01-15-2025 08:54:36 CDT by Moe Huang M.D. [email or web address]
--- NOTE | 2025-01-13 13:54 | XR_ITS ---
WS: [id number] Portable AP upright chest, 01/13/2025 Clinical Data: Chest pain Comparison: Portable chest, 12/11/2022 Findings: No nodules, masses or effusions are seen. The heart is normal. The pulmonary vascularity is not increased. No pneumonia or pneumothorax is seen. The aortic arch and descending thoracic aorta show tortuosity. Monitor leads are on the chest wall. XR/XR chest 1V portable [id number] Impression: Atherosclerosis.
[2025-01-13 14:12] VITALS: BP 164/96; PULSE 82; RESP 21
[2025-01-13 14:56] VITALS: BP 166/98; PULSE 70; RESP 16; O2SAT 99
== END 2025-01-13 15:00 | disposition home or self-care (01) ==
PROVIDERS: Emergency Provider Emergency Medicine
DX: R07.89 Other chest pain (principal)
CPT/HCPCS: 71045; 80053; 81001; 83880; 84484; 85025; 93005; 99285; J9999